=== PATIENT | male | born 1990 | race Caucasian/White ===

== ENCOUNTER 2017-06-06 18:48 | Emergency (ER) | payer OTHER ==
[~2017-06-06] VITALS: Ht 167.6 cm; Wt 88.5 kg
--- NOTE | ~2017-06-06 | CR142 ---
[facility] A Service of [facility] RADIOLOGY TEXT RESULTS PATIENT: DEANNA MAHONEY LOCATION: [place] : [birth year] UNIT #: [id number] AGE: [address]: KEVIN PELAYO APRN SEX: M ORDER DR: [id number] [facility]. [place], [place] [address] [id number] MR#: [id number] Acc #: [id number] NAME: DEANNA MAHONEY : 1990 SEX: M STUDY DATE/TIME: 06/06/2017 19:19 UNIT: CFAL ROOM: STUDY DESCRIPTION: CR Hand Min 3 Views Rt Attending Physician: Kevin Pelayo Aprn Ordering Physician: Aniya Snowden P.A.-C. Primary Care Physician: Álvaro Domínguez M.D. MEDICAL IMAGING REPORT This report is preliminary unless electronic signature is present EXAM Right hand, 3 views. COMPARISON February 16, 2008. INDICATION 26-year-old male with right hand pain and swelling after punching an object yesterday. FINDINGS There is an acute fracture through the neck of the fifth metacarpal with approximately 50 degrees angulation. This is dorsal convex. Bones are anatomically aligned. There is no evidence of intraarticular extension. IMPRESSION Acute transverse fracture through the neck of the fifth metacarpal without significant displacement but there is approximately 50 degrees of dorsal convex angulation. No dislocation. Dictated by... Gene Marrero M.D. THIS IS AN ELECTRONICALLY VERIFIED REPORT Gene Marrero M.D. at 06/12/2017 9:14 PM ELIZABETH/olimpia TD: 06/07/2017 01:19 JOB #: [id number] MEDICAL IMAGING REPORT [facility] A Service [facility] RADIOLOGY TEXT RESULTS PATIENT: DEANNA MAHONEY LOCATION: [facility] : 90 UNIT #: [id number] AGE: [address]: KEVIN PELAYO APRN SEX: M ORDER DR: Page 1 of 1 COPY
[~2017-06-06 18:48] MED LIST: BACTRIM DS TABL1 TAB PO
== END 2017-06-06 20:15 | disposition home or self-care (01) ==
LOC: CED 18:48 → CFTX 18:48
DX: S62.336A Displaced fracture of neck of fifth metacarpal bone, right hand, initial encounter for closed fracture (principal); W22.8XXA Striking against or struck by other objects, initial encounter; Y92.099 Unspecified place in other non-institutional residence as the place of occurrence of the external cause
CPT/HCPCS: 29125; 73130; 99283